=== PATIENT | male | born 1970 | race Caucasian/White ===

== ENCOUNTER 2016-08-17 06:43 | Day surgery (SDC) | payer OTHER ==
[2016-08-17] MEDS ORDERED: CEFAZOLIN 2 GM/DEXTR 100 ML IV ONE (07:00)
[2016-08-17] MEDS ORDERED: ACETAMINOPHEN 500 MG TAB PO ONE (07:00)
[2016-08-17] MEDS ORDERED: PREGABALIN 150 MG CAP PO ONE (07:00)
[2016-08-17] MEDS ORDERED: LIDOCAINE 1% 2 ML INJ ONE (07:35)
[2016-08-17] MEDS ORDERED: OXYCODONE/APAP 5/325 TAB PO PRN (07:41)
[2016-08-17] MEDS ORDERED: PROPOFOL 200 MG/20 ML VIAL ONE (07:57)
[2016-08-17] MEDS ORDERED: fentaNYL 100 MCG/2 ML INJ ONE (07:57)
[2016-08-17] MEDS ORDERED: LIDOCAINE 2% 5 ML SDV ONE (07:58)
[2016-08-17] MEDS ORDERED: HYDROmorphONE/DILAUDID 2 MG/ML INJ ONE (07:58)
[2016-08-17] MEDS ORDERED: DEXAMETHASONE 4 MG/ML VIAL ONE (07:58)
[2016-08-17] MEDS ORDERED: ONDANSETRON 4 MG/2 ML VIAL ONE (07:58)
[2016-08-17] MEDS ORDERED: ROCURONIUM 50 MG/5 ML VIAL ONE ×2 (08:01→09:48)
[2016-08-17] MEDS ORDERED: LR 1,000 ML IV ONE (08:02)
[2016-08-17] MEDS ORDERED: BUPIVACAINE/EPI 0.25% 30 ML SDV ONE (08:23)
[2016-08-17] MEDS ORDERED: MIDAZOLAM 2 MG/2 ML VIAL ONE (08:29)
[2016-08-17] MEDS ORDERED: SUGAMMADEX SODIUM 200 MG/2 ML VIAL IVP ONE (11:56)
== END 2016-08-17 15:00 | disposition home or self-care (01) ==
LOC: FSGY 06:43
PROVIDERS: ATTEND Orthopaedic Surgery Sports Medicine
PROC: 0SQB4ZZ Repair Left Hip Joint, Percutaneous Endoscopic Approach (ICD-10-PCS; principal; 2016-08-17 08:15)
DX: M25.852 Other specified joint disorders, left hip (principal); M16.12 Unilateral primary osteoarthritis, left hip
CPT/HCPCS: 29916; 76001; C1769; C1713; J0690; J1100; J1170; J2250; J2405; J2704; J3010